=== PATIENT | female | born 1985 | race Caucasian/White ===

== ENCOUNTER 2016-12-13 01:04 | Emergency (ER) | payer OTHER ==
[~2016-12-13] VITALS: Ht 165.1 cm; Wt 99.1 kg
[~2016-12-13 01:04] MED LIST: ALBU18HF INH; AMT25T PO; CHOL200025 PO; MULT-1018 PO; OMEP40CA3 PO; RIZA10TA26 PO; ZOF8 PO
[2016-12-13 01:09] VITALS: BP 134/75; PULSE 104; RESP 18; O2SAT 100
--- NOTE | 2016-12-13 01:30 | ED.REPORT ---
HPI-Abd Pain F Under 40 Date of Service Dec 13, 2016 ED Provider: Rae Stout MD This is a 31 year old female with a history of IBS presenting to the ED complaining of R sided flank pain that began 8 hours ago. Pain is progessively worsening. Reports urinary retention, last urinated 14 hours ago. She has tried to urinate several times with voiding of a few drops. Denies fever, chills, nausea, vomiting, or abdominal pain. Nursing Notes Stated Complaint: UNABLE TO URINATE Chief Complaint: Female Abdominal Pain Nursing Notes Reviewed: Yes Allergies: Coded Allergies: Penicillins (Verified Allergy, Severe, anaphylaxis, 12/13/16) fentanyl (Verified Allergy, Unknown, 12/13/16) promethazine (Verified Allergy, Unknown, 12/13/16) Uncoded Allergies: FETENYL (Allergy, Intermediate, NAUSEA WITH EMESIS, 03/02/16) Scheduled Amitriptyline (Amitriptyline) 25 Mg Tab 50 MG PO HS Cephalexin (Keflex) 500 Mg Capsule 500 MG PO QID Cholecalciferol (Vitamin D3) (Vitamin D3) 2,000 Unit Tablet 2,000 UNIT PO DAILY Multivitamin (Multi Vitamin Daily) 1 Each Tablet 1 EACH PO DAILY Omeprazole (Prilosec) 40 Mg Capsule.dr 40 MG PO DAILY Tamsulosin (Flomax) 0.4 Mg Capsule 0.4 MG PO DAILY Scheduled PRN Albuterol Sulfate (Ventolin HFA Inhaler) 200 Puff/18 Gm Inhaler 2 PUFF INH Q4 PRN PRN For Wheezing Ondansetron (Zofran) 8 Mg Tablet 8 MG PO TID PRN PRN For Nausea Ondansetron ODT (Zofran ODT) 4 Mg Tablet 4 MG PO Q4H PRN PRN For Nausea Rizatriptan (Maxalt) 10 Mg Tablet 10 MG PO PRN migraines MR q2 hrs/ NTE 30mg/24 oxyCODONE-Acetaminophen 5-325 mg (oxyCODONE-Acetaminophen 5-325 mg) 1 Each Tablet 1 TAB PO Q4H PRN PRN For Pain General Time Seen by MD: 01:28 Chief Complaint Flank pain right Hx Obtained From: Patient Arrived By: Walk-in Sudden in Onset?: Yes Onset Occurred: 5 - 8 hours ago Symptom Duration: Since onset Severity: Current: Moderate Pertinent Negative: Pt denies other symptoms Recent Healthcare: No recent doctor visit, No recent hospitalization Similar Sx Previous: No Past Medical History Past Medical History IBS Migraines Past Surgical History Reports: Cholecystectomy Smoking History Never Smoker Ambulatory Status Independent Review of Systems Constitutional: Denies: Chills, Fever Respiratory: Denies: Non-productive cough, Shortness of breath GI: Denies: Abdominal pain, Nausea, Vomiting Female: Reports: Flank pain, Urination decreased, Denies: Hematuria Complete sys rev & neg: except as marked. Physical Exam Initial Vital Signs Vital Signs (First) Date Time Temp Pulse Resp B/P Pulse Ox O2 Delivery O2 Flow Rate FiO2 12/13/16 01:09 36.4 104 18 134/75 100 Room Air Initial VS: Reviewed Head / Eyes: Atraumatic, Normocephalic, PERRL ENT: Mucous membranes moist, Conjunctiva normal, No scleral icterus Neck: Supple, Non-tender, Full range of motion Extremities: Vascular intact, Neuro intact, No swelling, No tenderness Skin: Warm, Dry, No cyanosis Neurologic: Alert, Oriented, Nonfocal Psychiatric: Mood/affect normal, Behavior normal, Normal thought content General/Constitutional: Awake, Alert Appearance / Presentation: Positive: Obese Tearful Respiratory / Chest: Breath sounds NL, Breath sounds = bilat, No respiratory distress, No rales, No rhonchi, No wheezing Cardiovascular: Heart rate NL, Regular rhythm, Heart sounds NL, Peripheral circulation NL Abdomen: Non-tender, No guarding, No rebound, BS normoactive, No distention Back: Inspection NL, Non-tender, No CVA tenderness Interpretation & Diagnostics ABD PELVIS CT CONCLUSION: Mild right hydronephrosis and hydroureter secondary to a 2 mm stone at the right UVJ. RADIOLOGIST: Sergio Pompa MD Lab Results Interpretation Result Diagram: 12/13/16 0125 12/13/16 0125 Test 12/13/16 01:25 12/13/16 02:45 White Blood Count 14.1th/mm3 (3.8-10.1) Red Blood Count 4.71mil/mm3 (3.90-5.20) Hemoglobin 14.1g/dL (12.0-15.6) Hematocrit 40.5% (35.0-46.0) Mean Corpuscular Volume 86.0fL (81-100) Mean Corpuscular Hemoglobin 29.9pg (27.0-35.0) Mean Corpuscular Hemoglobin Concent 34.8% (32.0-37.0) Red Cell Distribution Width 12.0% (12.3-15.4) Platelet Count 166bil/L (150-400) Neutrophils (%) (Auto) 74.9% (40-74) Lymphocytes (%) (Auto) 16.6% (14-46) Monocytes (%) (Auto) 6.7% (4-12) Eosinophils (%) (Auto) 1.1% (0-5) Basophils (%) (Auto) 0.4% (0-3) Sodium Level 134mEq/L (134-144) Potassium Level 4.4mEq/L (3.5-5.2) Chloride Level 96mEq/L (97-108) Carbon Dioxide Level 21mmol/L (18-29) Blood Urea Nitrogen 15mg/dL (6-20) Creatinine 0.95mg/dL (0.57-1.00) Estimat Glomerular Filtration Rate 98mL/min (>59) Glucose Level 125mg/dL (60-99) Calcium Level 9.4mg/dL (8.5-10.1) Magnesium Level 2.0mg/dL (1.6-2.6) Total Bilirubin 0.2mg/dL (0.0-1.2) Aspartate Amino Transf (AST/SGOT) 30U/L (0-50) Alanine Aminotransferase (ALT/SGPT) 43U/L (0-32) Alkaline Phosphatase 49U/L (25-150) Total Protein 7.7g/dL (6.4-8.4) Albumin 4.8g/dL (3.4-5.0) Lipase 41U/L (13-60) Urine Color Yellow (YELLOW) Urine Appearance Slightly cloudy Urine pH 7.0 (5.0-8.0) Urine Specific [place] 1.020 (1.003-1.035) Urine Protein Tracemg/dL (NEG,TRACE) Urine Glucose (UA) Negativemg/dL (NEGATIVE) Urine Ketones Tracemg/dL (NEGATIVE) Urine Occult Blood Negative (NEGATIVE) Urine Nitrite Negative (NEGATIVE) Urine Bilirubin Negative (NEGATIVE) Urine Urobilinogen Normalmg/dL (NORMAL) Urine Leukocyte Esterase Trace (NEGATIVE) Urine RBC 3-10/hpf (0-2) Urine WBC 11-50/hpf (0-5) Urine Epithelial Cells Many/hpf (NONE-MOD) Urine Crystals None seen (NONE SEEN) Urine Bacteria Many/hpf (NONE-FEW) Urine Hyaline Casts None/lpf (NONE) Urine Granular Casts None seen (NONE SEEN) Urine Waxy Casts None seen (NONE SEEN) Urine Red Blood Cell Casts None seen (NONE SEEN) Urine White Blood Cell Casts None seen (NONE SEEN) Urine Mucus Present (None Seen) Urine Trichomonas None seen (NONE SEEN) Urine Yeast None (NONE SEEN) Urine Culture Reflexed Indicated Re-Eval/Medical Decision Med Decision/Clinical Course 31-year-old female with past medical history of migraine and IBS here with sudden onset severe right flank pain. Differential diagnosis includes but is not limited to kidney stone versus henok nephritis versus urinary tract infection versus hydronephrosis. Labs are remarkable for mild leukocytosis, otherwise normal CBC. CMP has mild hyperglycemia with normal renal failure. Urinalysis has 25-[address] scan shows 2 mm stone at the right UVJ with very mild hydronephrosis. Given her white cells in her urine, I discussed the case with who does not feel she has an infected stone. She does feel comfortable giving her Keflex to go home with however. Patient was given Keflex, Zofran, Percocet, and Flomax and advised to follow-up with her primary care physician. She has been given very strict return precautions and will follow up with her PCP. She is aware and amenable to discharge. Re-Evaluation/Progress : Time of Eval: 03:17 Re-Evaluation/Progress Note: Discussed lab and imaging results and plan for d/c, pt understands and agrees with plan, all questions addressed Consultation : Referral / Consult Name: Marizol Hahn MD Consulted With: Urology Call Returned at: 03:22 Practice Office Associate: Agrees with eval, Agrees with plan Counseled Regarding: Diagnosis, Lab results, Need for follow-up, When/why to return to ED Discharge & Departure Primary Impression: Hydronephrosis Hydronephrosis type: unspecified Qualified Code: N13.30 - Unspecified hydronephrosis Additional Impression: Kidney stone Disposition: Home Discharge Condition All VS Reviewed: Yes Condition: Stable Patient Instructions: Nephrolithiasis (ED) Additional Instructions: Take Flomax and Keflex as prescribed. Take Percocet as prescribed for pain control and zofran as needed for nausea. Follow up with your primary care provider, call tomorrow to schedule an appointment. Referrals: Rakel Hodge DO (PCP) Scribe Attestation Portions of this note were transcribed by Bety Martin. I, Dr. Stout personally performed the history, physical exam and medical decision-making; I reviewed and confirmed the accuracy of the information in the transcribed note. Signed by: yeni Maldonado. 12/12/2016, 02:00. Rae Stout MD Dec 13, 2016 01:30 BETY MARTIN Dec 13, 2016 01:34
[2016-12-13 01:41] LABS: BASOPHILS % (AUTO) 0.4 % (0-3); EOSINOPHILS % (AUTO) 1.1 % (0-5); MONOCYTES % (AUTO) 6.7 % (4-12); Mean Corpuscular Hemoglobin 29.9 pg (27.0-35.0); NEUTROPHILS % (AUTO) 74.9 % (40-74); Platelet Count 166 bil/L (150-400)
[2016-12-13] MEDS ORDERED: Ondansetron 2 mg/mL 2 mL Inj IVPUSH ONE (01:45)
[2016-12-13] MEDS ORDERED: MetoCLOpramide 5 mg/mL 2 mL Inj IVPUSH ONE (02:15)
[2016-12-13 02:20] VITALS: BP 134/80; PULSE 104; RESP 18; O2SAT 97
[2016-12-13 03:06] LABS: APPEARANCE,URINE SLIGHTLY CLOUDY (CLEAR,HAZY); COLOR,URINE YELLOW (YELLOW); OCCULT BLOOD,URINE NEGATIVE (NEGATIVE); UROBILINOGEN,URINE NORMAL (NORMAL)
[2016-12-13] MEDS ORDERED: cefTRIAXone Inj 1,000 MG in IV Premix 1 EACH IV ONE (03:10)
[2016-12-13] MEDS ORDERED: HYDROmorphone 1 mg/mL Inj IVPUSH ONE (03:20)
[2016-12-13] MEDS: cefTRIAXone Inj 2,000 MG in IV Premix 1 EACH IV ONE ×2 (03:42→03:54)
[2016-12-13] MEDS ORDERED: TAMS0.4C98 PO (04:06)
[2016-12-13] MEDS ORDERED: ONDA4TAB9 PO (04:06)
[2016-12-13] MEDS ORDERED: OXYC1TAB24 PO (04:06)
[2016-12-13] MEDS ORDERED: CEPH-512 PO (04:06)
[2016-12-13 04:47] VITALS: BP 128/74; PULSE 100; RESP 18; O2SAT 98
--- NOTE | 2016-12-13 09:47 | DRSVH ---
PROCEDURE: CT KUB ([id number]) INDICATIONS: 31 year-old woman with right flank pain. TECHNIQUE: Noncontrast 5 mm thick sections acquired from the diaphragms to the symphysis. 5 mm thick coronal an d sagittal reformats were then performed. For radiation dose reduction, the following was used: aut omated exposure control, adjustment of mA and/or kV according to patient size. COMPARISON: [facility], US, US PELVIC+TRANSVAG, 05/26/2016, 14:19. Outside Film, CT, CT ABD PELVIS W CON, 04/26/2016, 19:12. FINDINGS: Image quality: Excellent. Lung bases: Lung bases are clear. Heart size is normal. Urinary system: Both kidneys are normal in size. There is mild right hydronephrosis and and hydroure ter. Mild perinephric stranding is present in right kidney. Both ureters demonstrate expected course s. There is a 2 mm stone in the bladder near the right UVJ with CT density 179 HU. Bladder is contra cted. Bladder wall thickness appears uniform. Other solid organs: Liver and spleen are normal in size. Gallbladder is surgically absent. Pancrea s is normal in contours. No adrenal nodules. Peritoneum and bowel: Unenhanced bowel loops demonstrate normal wall thickness and caliber. Appendi x is normal. No free fluid or air. Nodes and vessels: No retroperitoneal or mesenteric adenopathy by size criteria. Aorta and inferior vena cava are normal in caliber. Abdominal wall: No ventral hernias. Pelvis: No free pelvic fluid. No inguinal hernias or adenopathy. Bones: No suspicious bony lesions. No vertebral body compression fractures. IMPRESSION: 1. A 2 mm stone in the urinary bladder near the right UVJ, compatible with a recently passed stone. T here is mild right hydronephrosis and hydroureter, as well as mild perinephric stranding in right kid iwona. 2. Cholecystectomy. No significant discrepancy with the timber incisor operator radiology preliminary report. Dictated by: Raciel Dixon M.D. on 12/13/2016 at 9:39 Transcribed by: ADOLPH on 12/13/2016 at 9:46 Approved by: Raciel Dixon M.D. on 12/13/2016 at 10:13
== END 2016-12-13 04:49 | disposition home or self-care (01) ==
LOC: SED 01:04
DX: N13.30 Unspecified hydronephrosis (principal); N20.0 Calculus of kidney; Z88.0 Allergy status to penicillin; Z88.8 Allergy status to other drugs, medicaments and biological substances
CPT/HCPCS: 36415; 74176; 80053; 81000; 81025; 83605; 83690; 83735; 85025; 87086; 96365; 96375; 99285; J0696; J1170; J1200; J2405; J2765